=== PATIENT | female | born 1980 | race Caucasian/White ===

== ENCOUNTER → 2016-05-13 | Outpatient (REF) | payer OTHER ==
[2016-05-13 17:48] LABS: MEAN CORPUSCULAR HEMOGLOBIN 31.6 pg (27.0-33.0); MEAN CORPUSCULAR HGB CONC 33.2 g/dl (32.0-36.5); MEAN CORPUSCULAR VOLUME 95.2 fl (80.0-96.0); RED CELL DISTRIBUTION WIDTH 12.3 % (11.5-14.5); WHITE BLOOD COUNT 9.1 K/mm3 (4.0-10.0)
[2016-05-13 18:00] LABS: ALBUMIN 3.6 GM/DL (3.2-5.2); ALBUMIN/GLOBULIN RATIO 1.13 (1.00-1.93); ALKALINE PHOSPHATASE 40 U/L (45-117); ALT/SGPT 11 U/L (12-78); ANION GAP 6 MEQ/L (8-16); AST/SGOT 9 U/L (15-37); BILIRUBIN,TOTAL 0.1 MG/DL (0.2-1.0); BLOOD UREA NITROGEN 11 MG/DL (7-18); CALCIUM LEVEL 8.4 MG/DL (8.5-10.1); CARBON DIOXIDE LEVEL 29 MEQ/L (21-32); CHLORIDE LEVEL 108 MEQ/L (98-107); CREATININE FOR GFR 0.69 MG/DL (0.55-1.02); GLOMERULAR FILTRATION RATE > 60.0 (>60); GLUCOSE, FASTING 75 MG/DL (70-105); POTASSIUM SERUM 4.1 MEQ/L (3.5-5.1); SODIUM LEVEL 143 MEQ/L (136-145); TOTAL PROTEIN 6.8 GM/DL (6.4-8.2)
== END ==
LOC: M SFHCPLAZ 15:57
PROVIDERS: ATTEND Nurse Practitioner Adult Health
DX: Z00.00 Encounter for general adult medical examination without abnormal findings (principal); J02.9 Acute pharyngitis, unspecified

== ENCOUNTER → 2017-08-21 | Outpatient (REF) | payer OTHER ==
[2017-08-23 14:10] LABS: HPV HYBRID CAPTURE II Negative (Negative)
== END ==
LOC: M LAB REF 14:37
DX: Z01.419 Encounter for gynecological examination (general) (routine) without abnormal findings (principal); Z11.51 Encounter for screening for human papillomavirus (HPV)

== ENCOUNTER → 2017-10-02 | Outpatient (REF) | payer OTHER | LOC: M SFHCLERA 14:43 | DX: L57.0 Actinic keratosis (principal) ==

== ENCOUNTER → 2018-02-04 | Outpatient (CLI) | payer OTHER ==
[2018-02-04 20:06] LABS: BASO % 0.2 % (0.0-1.0); EOS # 0.1 10^3/uL (0.0-0.50); HEMATOCRIT 32.3 % (36.0-47.0); HEMOGLOBIN 10.8 g/dl (12.0-15.5); IMMATURE GRANULOCYTE % 0.3 % (0-3.0); LYMPH # 2.7 10^3/uL (1.5-4.5); LYMPH % 28.7 % (24.0-44.0); MEAN CORPUSCULAR HEMOGLOBIN 31.2 pg (27.0-33.0); MEAN CORPUSCULAR HGB CONC 33.4 g/dl (32.0-36.5); MEAN CORPUSCULAR VOLUME 93.4 fl (80.0-96.0); MONO # 0.6 10^3/uL (0.0-0.8); NEUTROPHILS % 63.8 % (36.0-66.0); PLATELET COUNT, AUTOMATED 203 10^3/uL (150-450); RED BLOOD COUNT 3.46 10^6/uL (4.00-5.40); RED CELL DISTRIBUTION WIDTH 12.1 % (11.5-14.5); WHITE BLOOD COUNT 9.4 10^3/uL (4.0-10.0)
[2018-02-04 20:44] LABS: CHLAMYDIA DNA AMPLIFICATION NEGATIVE (NEGATIVE); GC DNA AMPLIFICATION NEGATIVE (NEGATIVE)
[2018-02-04 22:52] LABS: HIV 1&2 SCREEN CENTAUR NEGATIVE (NEGATIVE); RUBELLA IgG QUALITATIVE IMMUNE (IMMUNE)
[2018-02-06 10:17] LABS: HBsAg Prenatal NEGATIVE (NEGATIVE)
[2018-02-06 10:17] LABS: HEPATITIS C VIRUS ABY INDEX 0.1 INDEX (<0.8)
== END ==
LOC: M SMT 15:41
DX: Z34.81 Encounter for supervision of other normal pregnancy, first trimester (principal); Z3A.09 9 weeks gestation of pregnancy
CPT/HCPCS: 86762

== ENCOUNTER → 2018-04-09 | Outpatient (CLI) | payer OTHER | LOC: M SMT 15:00 | PROVIDERS: ATTEND Obstetrics & Gynecology | DX: Z13.79 Encounter for other screening for genetic and chromosomal anomalies (principal) ==

== ENCOUNTER → 2018-04-13 | Outpatient (CLI) | payer OTHER ==
--- NOTE | 2018-04-13 20:26 | REP ---
Clinical: Anatomical follow-up for cord plexus cyst . Comparison: None available . Findings: Examination demonstrates a single live intrauterine in and show breech presentation. motion is identified by technologist. Placenta is noted posterior and grade grade 1 without evidence for placenta previa or abruption. Amniotic fluid volume is normal. Cervix measures 3.5 cm in length and appears closed. Nuchal cord cannot be excluded Gestational age by LMP 21 weeks 2 days with MARGARITO 08/22/2018 . Gestational age by current measurements 22 weeks 6 days with MARGARITO 08/11/2018 . FHR equals 147 beats per minute. BPD 5.6 cm 23 weeks 1 day HC 21.0 cm 23 weeks 0 days AC 17.9 cm 22 weeks 5 days FL 3.8 cm 22 weeks 2 days HL 3.8 cm 23 weeks 1 day HC/AC ratio 1.17 Estimated weight 518 grams ( 92nd percentile based on age by LMP ). Anatomical assessment demonstrates normal structures including cranium, choroid plexus, cavum, cerebellum/posterior fossa, facial features, lungs, four-chamber heart/ left ventricular outflow tracts, diaphragm, three-vessel cord, kidneys/bladder, and lower extremities. Limited evaluation of the right cardiac ventricular outflow tract, stomach, cord insertion, and upper extremities noted. No choroid plexus cysts identified on current examination. Impression: Single live intrauterine in breech presentation. Nuchal cord cannot be excluded. Anatomical limitations as noted above. Electronically Signed by Jaya Meier MD 04/13/2018 08:17 P
== END ==
LOC: M RAD 12:36
PROVIDERS: ATTEND Advanced Practice Midwife
DX: O35.0XX0 Maternal care for (suspected) central nervous system malformation in fetus, not applicable or unspecified (principal); O32.1XX0 Maternal care for breech presentation, not applicable or unspecified; Z3A.22 22 weeks gestation of pregnancy

== ENCOUNTER → 2018-04-23 | Outpatient (CLI) | payer OTHER | LOC: M SMT 10:40 | PROVIDERS: ATTEND Obstetrics & Gynecology | DX: O09.512 Supervision of elderly primigravida, second trimester (principal) ==

== ENCOUNTER → 2018-05-25 | Outpatient (CLI) | payer OTHER ==
[2018-05-25 12:24] LABS: BASO % 0.2 % (0.0-1.0); EOS % 0.3 % (0.0-3.0); HEMATOCRIT 31.6 % (36.0-47.0); HEMOGLOBIN 10.3 g/dl (12.0-15.5); LYMPH % 15.1 % (24.0-44.0); MEAN CORPUSCULAR HEMOGLOBIN 31.2 pg (27.0-33.0); MEAN CORPUSCULAR HGB CONC 32.6 g/dl (32.0-36.5); MEAN CORPUSCULAR VOLUME 95.8 fl (80.0-96.0); MONO # 0.7 10^3/uL (0.0-0.8); NEUTROPHILS # 10.3 10^3/uL (1.8-7.7); NEUTROPHILS % 78.6 % (36.0-66.0); PLATELET COUNT, AUTOMATED 216 10^3/uL (150-450); WHITE BLOOD COUNT 13.1 10^3/uL (4.0-10.0)
== END ==
LOC: M SMT 09:53
PROVIDERS: ATTEND Specialist
DX: O09.512 Supervision of elderly primigravida, second trimester (principal)

== ENCOUNTER → 2018-06-02 | Outpatient (CLI) | payer OTHER ==
--- NOTE | 2018-06-02 09:48 | REP ---
Right lower extremity deep vein duplex ultrasound: The deep veins demonstrate normal compression, normal Doppler color flow and normal Doppler waveforms with respiration and augmentation from the popliteal vein to the common femoral vein. Impression: There is no right lower extremity deep vein thrombus. Electronically Signed by Jose Rafael Calix MD 06/02/2018 09:40 A
== END ==
LOC: M RAD 09:12
PROVIDERS: ATTEND Obstetrics & Gynecology
DX: R22.41 Localized swelling, mass and lump, right lower limb (principal)

== ENCOUNTER 2018-07-25 09:36 | Inpatient (IN) | payer OTHER ==
[2018-07-25] VITALS (18 sets, daily range): BP systolic 112–133; BP diastolic 55–80
[~2018-07-25] VITALS: Ht 172.7 cm; Wt 73.8 kg
[2018-07-25] MEDS ORDERED: PRENTAB9 PO (09:55)
[2018-07-25] MEDS ORDERED: PENICILLIN G POTASSIUM IV 5 MU in D5W MINI-BAG PLUS 100 ML IV STA (10:35)
[2018-07-25] MEDS ORDERED: OXYTOCIN DRIP 30 UNITS in APPROPRIATE DILUENT 1 EA IV SCH (11:00)
--- NOTE | 2018-07-25 11:01 | HPE ---
DATE OF ADMISSION: 07/25/2018 HISTORY OF PRESENT ILLNESS: 38-year-old, (G) 1, para (P) 0 female at 36 and 0/7 weeks gestation by last menstrual period (LMP) consistent with 9 week ultrasound and expected date of confinement (EDC) of 08/22/2018 who presents with spontaneous loss of fluid per vagina at 1:15 a.m. on the morning of admission. She continued to leak intermittently throughout the rest of the morning. She denies contractions. She had a scant amount of vaginal bleeding with wiping. COURSE: The patient initiated care at 8 weeks gestation on 01/16/2018. Her first trimester blood pressure was 122/74, weight 136 pounds. course was unremarkable. MEDICAL HISTORY: Noncontributory. SURGICAL HISTORY: None. ALLERGIES: LATEX. SOCIAL HISTORY: The patient lives in [place]. She denies cigarettes, alcohol or drug use. Father of the baby is in involved. FAMILY HISTORY: Noncontributory. PHYSICAL EXAMINATION: Blood pressure is 132/80. Pulse is 84. Afebrile. She is in no apparent distress. Head and Neck Exam: Normal. Lungs: Clear. Heart: Regular rate and rhythm. Abdomen: Nontender. Gravid. heart tones Category 1. Contractions irregular. Sterile Vaginal Exam: Positive pool, positive Nitrazine, positive fern. Cervix is 3 cm, 80%, -2, posterior, vertex. Extremities: Nontender. LABS: Blood type AB positive. Rubella immune. RPR nonreactive. Hepatitis B and C negative. HIV negative. ASSESSMENT: 38-year-old, G1, P0, female at 36 and 0/7 weeks gestation who presents with spontaneous rupture of membranes not in labor. PLAN: To admit on 07/25/2018. Will recommend Pitocin augmentation of labor. Will also treat for GBS prophylaxis with penicillin for GBS unknown.
[2018-07-25] MEDS: LR 1,000 ML IV SCH ×2 (11:13→15:06)
[2018-07-25 11:39] LABS: HEMATOCRIT 30.8 % (36.0-47.0); HEMOGLOBIN 10.4 g/dl (12.0-15.5); MEAN CORPUSCULAR HEMOGLOBIN 31.2 pg (27.0-33.0); MEAN CORPUSCULAR HGB CONC 33.8 g/dl (32.0-36.5); MEAN CORPUSCULAR VOLUME 92.5 fl (80.0-96.0); PLATELET COUNT, AUTOMATED 210 10^3/uL (150-450); RED BLOOD COUNT 3.33 10^6/uL (4.00-5.40)
[2018-07-25] MEDS ORDERED: FENTANYL 2MCG/ML ROPIVACAINE 0.2% IN 0.9% NACL 100ML IVBAG As Ordered ONE (13:32)
[2018-07-25] MEDS ORDERED: EPIDURAL COMMENT XX SCH (14:45)
[2018-07-25] MEDS ORDERED: REFRIGERATOR IV KEYS XX PRN (14:45)
[2018-07-25] MEDS ORDERED: ONDANSETRON 4MG/2ML VIAL (J2405) IV PRN ×2 (14:45→19:30)
[2018-07-25] MEDS ORDERED: FENTANYL/ROPIVACAINE/NACL BAG 100 ML EPIDURAL SCH (14:45)
[2018-07-25] MEDS ORDERED: ePHEDrine SULFATE 25 MG/5 ML(5MG/ML) SYRINGE IV PRN (14:45)
[2018-07-25] MEDS ORDERED: NALOXONE INJ 0.4 MG/1 ML VIAL (J2310) IV PRN (14:45)
[2018-07-25] MEDS ORDERED: EPIDURAL/PCA KEYS XX PRN (14:45)
[2018-07-25] MEDS ORDERED: diphenhydrAMINE INJ 50MG/ML VIAL (J1200) IV PRN (14:45)
[2018-07-25] MEDS ORDERED: LACTATED RINGER'S 1000 ML IV PRN (14:45)
[2018-07-25] MEDS ORDERED: PENICILLIN G POTASSIUM IV 2.5 MU in APPROPRIATE DILUENT 1 EA IV SCH (15:15)
[2018-07-25] MEDS ORDERED: RHOGAM 300 MCG (1500 IU) INJ (J2790) IM SCH (19:30)
[2018-07-25] MEDS ORDERED: METHYLERGONOVINE MALEATE 0.2 MG TAB PO PRN (19:30)
[2018-07-25] MEDS ORDERED: ACETAMINOPHEN TAB 650MG DOSE (2X325MG) PO PRN (19:30)
[2018-07-25] MEDS ORDERED: DOCUSATE SODIUM 100 MG CAP PO PRN (19:30)
[2018-07-25] MEDS ORDERED: IBUPROFEN 800 MG TAB PO PRN (19:30)
[2018-07-25] MEDS ORDERED: MEASLES,MUMPS,RUBELLA VACCINE INJ (MMR-II) (90707) SC SCH (19:30)
[2018-07-25] MEDS ORDERED: DIBUCAINE 1% OINTMENT 30GM TOP PRN (19:30)
[2018-07-25] MEDS ORDERED: IBUPROFEN 600 MG TAB PO PRN (19:30)
[2018-07-25] MEDS ORDERED: OXYTOCIN DRIP 30 UNITS in APPROPRIATE DILUENT 1 EA IV ONE (19:30)
[2018-07-25] MEDS ORDERED: LIDOCAINE 1% MDV 20ML VIAL INFIL ONE (19:30)
[2018-07-26 05:55] VITALS: BP 115/56
[2018-07-26] MEDS: PRENATAL VITAMINS CHEWABLE TABLET PO SCH (08:35)
[2018-07-26] MEDS: ACETAMINOPHEN 500 MG TAB PO PRN ×2 (09:46→20:55)
[2018-07-26 18:22] VITALS: BP 118/65
--- NOTE | 2018-07-26 21:26 | DN ---
DATE: 07/25/2018 PREDELIVERY DIAGNOSIS: A 36-0/7 weeks' gestation, labor induction. POSTDELIVERY DIAGNOSIS: Delivered. PROCEDURE: Spontaneous vaginal delivery. FLASK MAKER: Dr. Jabier Goldstein. ANESTHESIA: Epidural. ESTIMATED BLOOD LOSS: 300 mL. FINDINGS: A 6 pound 9 ounce female with scores 8 and 9. Nuchal cord times two. DELIVERY SUMMARY: After 90 minutes second stage, the patient spontaneous delivered a 6 pound 9 ounce female with scores 8 and 9 under epidural anesthesia. Nuchal cord times two is reduced manually. The shoulders delivered with ease. The infant was handed to the mother. The cord was doubly clamped and cut. Placenta did not delivery for approximately 30 minutes and partially . The patient was bleeding still. I expedited delivery with manual extraction. Placenta came out in multiple fragments. The uterine cavity was deemed to be empty at the end of the procedure. Also of note, the patient appeared to have a slight bicornuate uterus manual exam. The patient received intravenous (IV) pitocin immediately after delivery of the placenta. A first degree left labial laceration and first degree perineal laceration repaired with 3-0 Chromic suture in the usual fashion. Sponge and needle counts were correct.
[2018-07-27 06:00] VITALS: BP 101/56
[2018-07-27] MEDS: PRENATAL VITAMINS CHEWABLE TABLET PO SCH (08:23)
[2018-07-27] MEDS ORDERED: IBUP-1114 PO (08:58)
[2018-07-27] MEDS ORDERED: MAPA500T2 PO (08:58)
== END 2018-07-27 11:00 | disposition home or self-care (01) | DRG 805 ==
LOC: M LDO 09:36 → M LDI 10:16 → M OBS 21:14
PROVIDERS: ADMIT Specialist; ATTEND Specialist
PROC: 10E0XZZ Delivery of Products of Conception, External Approach (ICD-10-PCS; principal; 2018-07-25)
PROC: 0HQ9XZZ Repair Perineum Skin, External Approach (ICD-10-PCS; 2018-07-25)
DX: O69.82X0 Labor and delivery complicated by other cord entanglement, without compression, not applicable or unspecified (principal); O60.14X0 Preterm labor third trimester with preterm delivery third trimester, not applicable or unspecified; Z37.0 Single live birth; O09.523 Supervision of elderly multigravida, third trimester; Z3A.36 36 weeks gestation of pregnancy; O70.0 First degree perineal laceration during delivery

== ENCOUNTER → 2018-12-08 | Outpatient (REF) | payer OTHER ==
[~2018-12-08] MED LIST: IBUP-1114 PO; MAPA500T2 PO; PRENTAB9 PO
== END ==
LOC: M SFHCPLAZ 17:08
PROVIDERS: ATTEND Dermatology
DX: D22.5 Melanocytic nevi of trunk (principal)

== ENCOUNTER → 2018-12-27 | Outpatient (REF) | payer OTHER | LOC: M LAB REF 09:30 | PROVIDERS: ATTEND Nurse Practitioner Family | DX: J02.9 Acute pharyngitis, unspecified (principal) ==

== ENCOUNTER → 2019-12-03 | Outpatient (CLI) | payer OTHER ==
[2019-12-03 17:43] LABS: BASO % 0.3 % (0.0-1.0); EOS # 0.1 10^3/uL (0.0-0.5); EOS % 0.7 % (0.0-3.0); HEMATOCRIT 37.1 % (36.0-47.0); HEMOGLOBIN 12.4 g/dl (12.0-15.5); LYMPH # 3.3 10^3/uL (1.5-5.0); LYMPH % 29.7 % (24.0-44.0); MEAN CORPUSCULAR HEMOGLOBIN 30.7 pg (27.0-33.0); MEAN CORPUSCULAR HGB CONC 33.4 g/dl (32.0-36.5); MEAN CORPUSCULAR VOLUME 91.8 fl (80.0-96.0); MONO # 0.6 10^3/uL (0.0-0.8); MONO % 5.4 % (0.0-5.0); NEUTROPHILS % 63.5 % (36.0-66.0); PLATELET COUNT, AUTOMATED 233 10^3/uL (150-450); RED BLOOD COUNT 4.04 10^6/uL (4.00-5.40)
[2019-12-03 20:56] LABS: CHLAMYDIA DNA AMPLIFICATION NEGATIVE (NEGATIVE); GC DNA AMPLIFICATION NEGATIVE (NEGATIVE)
[2019-12-03 21:04] LABS: HEPATITIS C VIRUS ABY INDEX 0.2 INDEX (<0.8); HIV 1&2 SCREEN CENTAUR NEGATIVE (NEGATIVE)
== END ==
LOC: M PLALAB 15:06
PROVIDERS: ATTEND Advanced Practice Midwife
DX: O09.521 Supervision of elderly multigravida, first trimester (principal)

== ENCOUNTER → 2020-02-09 | Outpatient (CLI) | payer OTHER ==
--- NOTE | 2020-02-09 15:36 | REP ---
INDICATION: ANATOMY COMPARISON: None. TECHNIQUE: Transabdominal obstetrical ultrasound with color Doppler evaluation. FINDINGS: Examination demonstrates a single live intrauterine in cephalic presentation. motion is identified by technologist. Placenta is noted anterior and grade 0 without evidence for placenta previa or abruption. Amniotic fluid volume is normal. Cervix measures 4.7 cm in length and appears closed.. Gestational age by LMP 19 weeks 6 days with MARGARITO 06/29/2020. Gestational age by current measurements 19 weeks 6 days with MARGARITO 06/29/2020. FHR equals 155 beats per minute. BPD: 4.6 cm it is 19 weeks 6 days HC: 17.3 cm 19 weeks 6 days AC: 14.4 cm 19 weeks 5 days FL: 3.2 cm 19 weeks 6 days HL: 3.1 cm 20 weeks 1 day HC/AC: 1.20 Estimated weight 313 grams (40thpercentile). Anatomical assessment demonstrates normal structures including cranium, choroid plexus, cavum, cerebellum/posterior fossa, lungs, four-chamber heart/ventricular outflow tracts, diaphragm, stomach, cord insertion/three-vessel cord, kidneys/bladder, spine, and extremities. IMPRESSION: Single live intrauterine in cephalic presentation demonstrating appropriate interval growth. Limited evaluation of the facial features noted. Remainder of the anatomical assessment is complete and normal. <Electronically signed by Jaya Meier > 02/09/20 [id number]
== END ==
LOC: M WHC 08:01
PROVIDERS: ATTEND Advanced Practice Midwife
DX: O09.522 Supervision of elderly multigravida, second trimester (principal); Z3A.19 19 weeks gestation of pregnancy

== ENCOUNTER → 2020-03-03 | Outpatient (CLI) | payer OTHER ==
--- NOTE | 2020-03-03 17:39 | REP ---
INDICATION: F/U ANATOMY. COMPARISON: 02/09/2020. TECHNIQUE: Real-time sonographic evaluation of the gravid uterus performed. FINDINGS: Estimated gestational age is23 weeks 1 day, EDC 06/29/2020. Today's measurements indicate appropriate growth. Presentation: Transverse head maternal right side. Placenta anterior, grade 0, without evidence of placenta previa. heart rate is recorded at 161 beats per minute. Amniotic fluid is subjectively normal. Closed cervical length is measured at 5.0 cm. Biometry chart: BPD: 56 mm, 23 weeks 0 days, 46th percentile. HC: 210 mm, 23 weeks 1 days, 47 percentile AC: 181 mm, 23 weeks 0 days, 45th percentile Femur length: 43 mm, 23 weeks 6 days, 68th percentile HC to AC ratio: 1.16, normal range 1.03-1.22. Estimated weight: 584g, 50th percentile. The facial structures are seen and are grossly unremarkable. IMPRESSION: Viable single intrauterine gestation as above. <Electronically signed by Jose Rafael Casas > 03/03/20 [id number]
== END ==
LOC: M WHC 15:27
PROVIDERS: ATTEND Advanced Practice Midwife
DX: Z36.89 Encounter for other specified antenatal screening (principal); Z3A.23 23 weeks gestation of pregnancy

== ENCOUNTER → 2020-03-23 | Outpatient (REF) | payer OTHER ==
[2020-03-23 13:08] LABS: HEMATOCRIT 33.7 % (36.0-47.0); HEMOGLOBIN 10.8 g/dl (12.0-15.5); MEAN CORPUSCULAR HEMOGLOBIN 30.3 pg (27.0-33.0); MEAN CORPUSCULAR VOLUME 94.7 fl (80.0-96.0); PLATELET COUNT, AUTOMATED 204 10^3/uL (150-450); RED BLOOD COUNT 3.56 10^6/uL (4.00-5.40); WHITE BLOOD COUNT 11.1 10^3/uL (4.0-10.0)
== END ==
LOC: M PLALAB 08:42
PROVIDERS: ATTEND Advanced Practice Midwife
DX: Z34.82 Encounter for supervision of other normal pregnancy, second trimester (principal); Z3A.26 26 weeks gestation of pregnancy

== ENCOUNTER → 2020-04-03 | Outpatient (CLI) | payer OTHER | LOC: M LAB 07:56 | PROVIDERS: ATTEND Advanced Practice Midwife | DX: O99.810 Abnormal glucose complicating pregnancy (principal); Z3A.00 Weeks of gestation of pregnancy not specified ==

== ENCOUNTER → 2020-05-31 | Outpatient (REF) | payer OTHER | LOC: M PLALAB 13:14 | PROVIDERS: ATTEND Obstetrics & Gynecology | DX: Z36.89 Encounter for other specified antenatal screening (principal); Z3A.35 35 weeks gestation of pregnancy ==

== ENCOUNTER 2020-06-05 00:58 | Inpatient (IN) | payer OTHER ==
[~2020-06-05] VITALS: Ht 172.7 cm; Wt 74.8 kg
[2020-06-05] VITALS (8 sets, daily range): BP systolic 107–124; BP diastolic 66–78
[2020-06-05] MEDS ORDERED: BICITRA 30ML SOLN UDC PO ONE (02:20)
[2020-06-05] MEDS ORDERED: LR 1,000 ML IV SCH ×2 (02:20→05:05)
[2020-06-05] MEDS ORDERED: AZITHROMYCIN INJ 500 MG, VIAL MATE ADAPTER 1 EACH in NS 250 ML IV ONE (02:20)
[2020-06-05] MEDS ORDERED: ceFAZolin SOD 2 GM in IV 1 EA IV ONE (02:20)
[2020-06-05] MEDS ORDERED: LACTATED RINGER'S 1000 ML IV STA (02:20)
[2020-06-05] MEDS ORDERED: dexameTHASONE 4 MG/ML 1ML VIAL (J1100 PER 1MG) As Ordered ONE (02:23)
[2020-06-05] MEDS ORDERED: ONDANSETRON 4MG/2ML VIAL As Ordered ONE (02:23)
[2020-06-05] MEDS ORDERED: KETOROLAC 60MG 2ML VIAL As Ordered ONE (02:23)
[2020-06-05] MEDS ORDERED: MORPHINE PRES-FREE INJ 10 MG/10 ML VIAL (J2274) As Ordered ONE (02:23)
[2020-06-05] MEDS ORDERED: OXYTOCIN INJ 10 UNITS/ML VIAL (J2590) As Ordered ONE (02:23)
[2020-06-05] MEDS ORDERED: OXYTOCIN 30 UNITS IN 0.9% NaCl 500ML IV BAG (J2590) As Ordered ONE (02:24)
[2020-06-05 02:48] LABS: HEMATOCRIT 32.6 % (36.0-47.0); HEMOGLOBIN 10.8 g/dl (12.0-15.5); MEAN CORPUSCULAR HEMOGLOBIN 30.9 pg (27.0-33.0); MEAN CORPUSCULAR HGB CONC 33.1 g/dl (32.0-36.5); MEAN CORPUSCULAR VOLUME 93.1 fl (80.0-96.0); PLATELET COUNT, AUTOMATED 152 10^3/uL (150-450); WHITE BLOOD COUNT 16.4 10^3/uL (4.0-10.0)
--- NOTE | 2020-06-05 02:57 | HPEPDOC ---
Obstetrical History & Physical General Date of Admission Jun 05, 2020 at 02:12 History of Present Illness Brianne is a 40yo with SIUP at 36w1d by lmp presents tonight with gush of fluid around 2330 with continued leakage, soaking into pad as she walks around. She notes the "exact same thing" happened with her last at 36wk. She had breech presentation noted in the office on 05/31 with plan for PLTCS if she had persistent breech presentation. Good movement, no vaginal bleeding or painful ctx. No fevers/chills. Fluid is clear. Chief Complaint: LOF, pre-term, Group B Positive Information Provided By: Patient Care Care: Good Care Dating Final EDC: Jun 29, 2020 Final EDC by: LMP Antepartum Course Diagnos(ajith)boogie MUNIZ (age 40) with NIPT showing low-risk female, history of prior PTD at 36wk after PPROM, bicornuate uterus, breech Past Medical History Past Obstetrical History : Past Obstetrical History: Multigravida (07/25/2018 PPROM 36wk 6lb9oz F ) Type of Delivery: Spontaneous Vaginal Del. 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 (bicornuate uterus) Past Medical History Medical History benign Surgical History: Other (left ACL reconstruction) Family History Significant Family History: Other (mother of melanoma) Social History Marital Status: Family situation: Spouse/partner home Psychosocial History: No pertinent psych hx * Smoker: non-smoker Alcohol: Denies Drugs: denies Imunizations Tdap status: current Allergies Coded Allergies: latex (Verified Allergy, Unknown, SKIN RASH, 07/25/18) Medications Scheduled No.137/Iron/Folic Acd ( Vitamin Tablet) 1 Each Tablet, 1 TAB PO DAILY Scheduled PRN Acetaminophen (Mapap) 500 Mg Tablet, 1,000 MG PO Q6HP PRN for PAIN SCALE 6-10 Ibuprofen (Ibuprofen) 400 Mg Tablet, 800 MG PO Q8HP PRN for PAIN SCALE 6-10 Physical Examination Physical Examination GENERAL: Alert and oriented times three. ABDOMEN: Gravid and non-tender to touch. FETUS: Is breech by TAUS, head maternal RUQ EXTREMITIES: No edema BLE Grossly ruptured with clear fluid saturating towel that is nitrazine positive Vital Signs/I&O Vital Signs Date Time Temp Pulse Resp B/P (MAP) Pulse Ox O2 Delivery O2 Flow Rate FiO2 06/05/20 01:12 97.6 72 119/78 (92) Pertinent Laboratoy Data Blood Type: AB+ RBC Antibody Screen: Negative HIV: Negative Hepatitis B: Negative Hepatitis C: Negative Rapid Plasma Reagin: Nonreactive Rubella: Immune Chlamydia/Gonorrhea: Negative Group B Streptococcus: Positive Glucose Tolerance Test: 138 (74/140/TNP/103) Steroid Therapy Steroid Therapy: No Assessment Heart Rate (FHR): 130 Variability: Moderate Accelerations: Positive Decelerations: None Tocometer Contractions: No Assessment/Plan Assessment Brianne is a 40yo with SIUP at 36w1d by lmp admitted for PPROM, clear, at 2330 with plan for PLTCS. Vitals wnl, benign exam other than grossly ruptured with +nitrazine and breech on TAUS. Cat I FHRT. PMhx/PNC significant for: AMA (age 40), history of prior PTD at 36wk after PPROM, bicornuate uterus, breech Plan Admit and orient. Counseled and consented for PLTCS for persistent breech presentation in the setting of PPROM. Also BTL for satisfied parity. Patient and state 100% sure that they desire no other children. had intention for vasectomy already. Also consented for blood transfusion. Discussed r/b/a and signed consent forms. Nursing team and anesthesia aware of plan. Diet: NPO Group B Streptococcus (GBS) positive: will treat with IV anceph and azithromycin Labs and intravenous (IV) per unit protocol. Lactated Ringers (LR): Bolus 1000 mL, then at 125 mL/hr. Rachel Littlejohn MD Jun 05, 2020 02:36
[2020-06-05] MEDS ORDERED: diphenhydrAMINE 50MG/ML VIAL (J1200) IV PRN (03:08)
[2020-06-05] MEDS ORDERED: NALOXONE INJ 0.4MG/1ML VIAL (J2310 PER 1MG) IV PRN ×2 (03:08)
[2020-06-05] MEDS ORDERED: NALBUPHINE HCL 10 MG/ML AMP (J2300) IV PRN (03:08)
[2020-06-05] MEDS ORDERED: METOCLOPRAMIDE INJ 10MG/2ML VIAL (J2765 PER 1) IV PRN ×2 (03:08→05:05)
[2020-06-05] MEDS ORDERED: ONDANSETRON 4MG/2ML VIAL IV PRN ×3 (03:08→05:05)
[2020-06-05] MEDS ORDERED: ATROPINE SULF 0.4 MG/ML 1ML VIAL (J0461) As Ordered ONE (03:23)
[2020-06-05] MEDS ORDERED: OXYTOCIN DRIP 30 UNITS in IV 1 EA IV SCH (04:51)
[2020-06-05] MEDS ORDERED: SIMETHICONE 80MG CHEW TAB PO PRN (04:55)
[2020-06-05] MEDS ORDERED: PERCOCET 5MG/325MG TAB PO PRN ×2 (04:55→05:05)
[2020-06-05] MEDS ORDERED: RHOGAM 300 MCG (1500 IU) INJ (J2790) IM SCH (04:55)
[2020-06-05] MEDS ORDERED: MEASLES,MUMPS,RUBELLA VACCINE INJ (MMR-II) (90707) SC SCH (04:55)
[2020-06-05] MEDS ORDERED: fentaNYL 100 MCG/2 ML INJECTION (J3010) IV PRN (05:05)
--- NOTE | 2020-06-05 07:57 | RO ---
OPERATIVE NOTE DATE OF OPERATION: 06/05/2020 SURGEON: Rachel Littlejohn MD EXECUTIVE PRODUCER PROMOS: Souleymane Alcala MD INDICATION FOR OPERATION: Brianne is a 40-year-old G2, now P0,2,0,2 who presented at 36 weeks 4 days with PPROM having gross rupture of membranes with Nitrazine positive and known breech presentation noted in clinic and on repeat ultrasound for presentation was still found to have breech presentation. Upon conversation she had 100% satisfied parity with desire for permanent sterilization and so she elected for bilateral tubal ligation at the time of section. PREOPERATIVE DIAGNOSES: 1. Yañez intrauterine at 36 weeks 4 days. 2. PPROM. 3. Breech presentation. 4. Satisfied parity. POSTOPERATIVE DIAGNOSES: 1. Yañez intrauterine at 36 weeks 4 days. 2. PPROM. 3. Breech presentation. 4. Satisfied parity. 5. Status post uncomplicated section and bilateral tubal ligation. MATERIAL FORWARDED TO THE LAB FOR EXAMINATION: Portions of bilateral fallopian tubes. DESCRIPTION OF FINDINGS: Female in mahendra breech presentation, Apgars 7 and 9. Weight 6 pounds 0 ounces. Normal appearing uterus (prior known bicornuate), fallopian tubes and ovaries normal in appearance. INFECTION CLASSIFICATION: 2. ESTIMATED BLOOD LOSS: 500 mL. URINE OUTPUT: 150 mL of clear yellow urine. IV FLUIDS: 1800 mL of lactated Ringer's. OPERATION PERFORMED: 1. Primary low transverse section. 2. Bilateral tubal ligation. DESCRIPTION OF PROCEDURE: The patient was taken to the operating room. She had a category 1 heart rate tracing prior. Spinal anesthesia was administered; Diaz catheter and bilateral sequential compression devices were placed. She was prepped and draped in normal sterile fashion in dorsal supine position with left lateral tilt. Time out was performed to confirm patient name, date of , procedure and indication, the team was in agreement. Spinal anesthesia was found to be adequate using an Allis clamp. She received 2 gm IV Ancef as well as 500 mg of IV Azithromycin prior to beginning the procedure. Pfannenstiel skin incision was made with scalpel and carried through to the underlying layer of fascia. Fascia was incised in the midline and the incision was extended laterally with Sandoval scissors. Superior and inferior aspects of the fascial incision were grasped with Kavitha clamps, elevated and underlying rectus muscles were dissected off bluntly and sharply. Peritoneum was entered digitally and rectus muscles were in the midline. Peritoneal incision was extended superiorly and inferiorly with good visualization of the bladder. Mobius retractor was inserted and vesicouterine peritoneum was identified, grasped with pickups and entered sharply with Metzenbaum scissors. Incision was extended laterally and bladder flap created digitally. Lower uterine segment was then scored in transverse fashion with scalpel. The uterus was entered bluntly and the incision was extended with traction with clear amniotic fluid noted. Infant's buttocks were elevated to the level of the incision with fundal pressure. The legs were delivered with Pinard maneuver and the baby was delivered up to the level of the shoulders at which point the arms were delivered using Loveset's maneuver and the head was delivered by gently rocking back and forth. There was spontaneous cry. Nose and mouth were suctioned with bulb suction, cord was clamped x2 and cut. was handed off to the awaiting nursing team. Placenta was removed with uterine massage and traction on the cord. The uterus was left in situ and cleared of all clot and debris. Uterine incision was repaired with #0 Vicryl suture in running locking fashion and second layer of #0 Monocryl was used to close the hysterotomy incision in imbricating fashion. Uterine incision was inspected, hemostasis was noted. At this time the right and left fallopian tubes were visualized without abnormalities. [place] tubal ligation was performed on the right followed by left fallopian tube using #0 plain gut suture. Notably the fimbriated ends of the fallopian tubes were removed entirely. Transected portions of the fallopian tubes were sent off to pathology. Gutters were cleared of all clots, the remaining tubal segments were inspected and there was no bleeding. Netta was applied along the hysterotomy incision and complete hemostasis was again noted. Mobius retractor was removed. The peritoneum was closed using 3-0 Vicryl suture in running fashion Rectus muscles were reapproximated with [id number] stitches using #0 Vicryl suture. The fascia was reapproximated with #0 Vicryl suture in running fashion, subcutaneous tissue was copiously irrigated. Yasmin's fascia was reapproximated using 3-0 Vicryl suture in running fashion, skin edges were reapproximated using three inverted stitches using 3-0 Vicryl suture followed by running subcuticular stitch using 4-0 Monocryl suture. Incision was cleaned using wet lap, dried with dry lap, Steri-Strips were applied in the usual fashion perpendicular to the Pfannenstiel incision, Optifoam dressing was placed overlying. The vagina was cleared of all blood clot without active bleeding noted. Fundus was firm at U-2 cm. All counts were correct x2. Procedure was without complications. The patient tolerated the procedure well, she was taken to the recovery room on labor and delivery in stable condition. LIVE
[2020-06-05] MEDS: LR 1,000 ML IV SCH ×2 (08:06→12:51)
[2020-06-05] MEDS: PRENATAL VITAMINS CHEWABLE TABLET PO SCH (09:00)
[2020-06-05] MEDS: DOCUSATE SODIUM 100MG CAPSULE PO SCH ×2 (09:47→20:19)
[2020-06-05] MEDS: KETOROLAC 30 MG/ML 1ML VIAL IV SCH ×3 (09:48→20:19)
[2020-06-06 02:19] VITALS: BP 130/60
[2020-06-06] MEDS: IBUPROFEN 800 MG TAB PO SCH ×3 (05:19→19:47)
[2020-06-06 05:57] LABS: HEMOGLOBIN 9.1 g/dl (12.0-15.5); MEAN CORPUSCULAR HEMOGLOBIN 30.4 pg (27.0-33.0); MEAN CORPUSCULAR HGB CONC 32.5 g/dl (32.0-36.5); MEAN CORPUSCULAR VOLUME 93.6 fl (80.0-96.0); PLATELET COUNT, AUTOMATED 130 10^3/uL (150-450); RED BLOOD COUNT 2.99 10^6/uL (4.00-5.40); WHITE BLOOD COUNT 12.3 10^3/uL (4.0-10.0)
[2020-06-06 06:09] VITALS: BP 106/58
[2020-06-06] MEDS: PRENATAL VITAMINS CHEWABLE TABLET PO SCH (09:05)
[2020-06-06] MEDS: DOCUSATE SODIUM 100MG CAPSULE PO SCH ×2 (09:05→19:47)
[2020-06-06] MEDS: PERCOCET 5MG/325MG TAB PO PRN ×2 (09:06→19:47)
--- NOTE | 2020-06-06 09:15 | IPNPDOC ---
Progress Note Date of Service: Jun 06, 2020 Day#: 1 Progress Note SUBJECT: Brianne is a 40yo with SIUP at 36w1d by lmp presents tonight with gush of fluid around 2330 with continued leakage, soaking into pad as she walks around. She had a primary section for breech presentation. She has been ambulating, voiding spontaneously without issue and tolerating regular diet. Jaylin ast feeding without issue. OBJECTIVE: VITAL SIGNS: Within normal limits, afebrile. Alert and oriented times three. Breath sounds clear to auscultation. Abdomen: Fundus firm at U. Dressing is intact without drainage. Minimal lochia. ASSESSMENT: Day 1 postoperative PLAN: 1. continue supportive nursing care. 2. Continue pain management. 3. Patient may shower today. 4. Anticipate discharge to home tomorrow. VS, I&O, 24H, Fishbone Vital Signs/I&O Vital Signs Date Time Temp Pulse Resp B/P (MAP) Pulse Ox O2 Delivery O2 Flow Rate FiO2 06/06/20 09:06 18 06/06/20 06:09 98.5 73 106/58 (74) 99 Room Air I&O- Last 24 Hours up to 6 AM 06/06/20 06:00 Intake Total 4450 ml Output Total 1300 ml Balance 3150 ml Laboratory Data 24H LABS Laboratory Tests 2 06/06/20 05:34: Nucleated Red Blood Cells % (auto) 0.0 CBC/BMP Laboratory Tests 06/06/20 05:34 BECK NICOLAS CNM Jun 06, 2020 09:15
[2020-06-06 09:59] VITALS: BP 125/73
[2020-06-06 14:05] VITALS: BP 110/70
[2020-06-06 18:00] VITALS: BP 124/65
[2020-06-06 22:00] VITALS: BP 121/61
[2020-06-07 02:00] VITALS: BP 117/61
[2020-06-07] MEDS: IBUPROFEN 800 MG TAB PO SCH (04:32)
[2020-06-07] MEDS: PERCOCET 5MG/325MG TAB PO PRN ×2 (04:33→10:58)
[2020-06-07 05:56] VITALS: BP 109/59
[2020-06-07] MEDS ORDERED: PERCOCET PO (07:25)
[2020-06-07] MEDS ORDERED: IBUP80TA PO (07:25)
[2020-06-07] MEDS ORDERED: DOK1CAP7 PO (07:25)
[2020-06-07] MEDS: PRENATAL VITAMINS CHEWABLE TABLET PO SCH (07:40)
[2020-06-07] MEDS: DOCUSATE SODIUM 100MG CAPSULE PO SCH (07:40)
--- NOTE | 2020-06-07 09:15 | IPNPDOC ---
Progress Note Date of Service: Jun 07, 2020 Day#: 2 Progress Note POD 2 SUBJECT: Brianne is a 40yo [id number] s/p uncomplicated PLTCS at 36w1d after presenting with PPROM and mahendra breech presentation, doing well post- op/ day # 2. She has been ambulating, voiding spontaneously without issue and tolerating regular diet. Pain well controlled. Bottle feeding without issue. Reports lochia is like a normal period. No f/c/n/v/CP/SOB. OBJECTIVE: VITAL SIGNS: Within normal limits, afebrile. Alert and oriented times three. Abdomen: Fundus firm at U-2. Soft, appropriately tender to palpation without rebound/guarding. Pfannenstiel incision covered by dry/clean optifoam. Extremities: no pain with palpation of calves Labs: pre-op H/H: 10.8/32.6 post-op H/H: 9.1/28 ASSESSMENT: Brianne is a 40yo [id number] s/p uncomplicated PLTCS at 36w1d after presenting with PPROM and mahendra breech presentation, doing well post- op/ day # 2. Vitals within normal limits, afebrile, hemodynamically stable with no evidence of infection. PLAN: 1. Discharge to home today. 2. Motrin for pain with prn percocet. Colace for bowel regimen 3. Encourage ambulation and hydration 4. Has BTL for contraception 5. Incision check with Dr. Littlejohn in 2 weeks 6. Discussed return precautions at length. No heavy lifting, vaginal rest 6 weeks. 7. Remove optifoam and steri strips in 1 week, keep incision clean and dry Rachel Littlejohn MD VS, I&O, 24H, Fishbone Vital Signs/I&O Vital Signs Date Time Temp Pulse Resp B/P (MAP) Pulse Ox O2 Delivery O2 Flow Rate FiO2 06/07/20 05:56 98.1 62 18 109/59 (76) 96 Room Air I&O- Last 24 Hours up to 6 AM 06/07/20 06:00 Intake Total 720 ml Balance 720 ml Rachel Littlejohn MD Jun 07, 2020 07:47
--- NOTE | 2020-06-07 09:21 | DS.PDOC ---
Discharge Summary General Date of Admission Jun 05, 2020 at 02:12 Date of Discharge Jun 07, 2020 Attending Physician: Rachel Littlejohn MD Discharge Summary PROCEDURES PERFORMED DURING STAY: primary low transverse section with BTL ADMITTING DIAGNOSES: 1. breech presentation at 36+ weeks with PPROM 2. satisfied parity DISCHARGE DIAGNOSES: 1. breech presentation at 36+ weeks with PPROM, delivered 2. satisfied parity, s/p BTL COMPLICATIONS/CHIEF COMPLAINT: Labor/ C/S. HISTORY OF PRESENT ILLNESS/HOSPITAL COURSE: Brianne is a 40yo [id number] s/p uncomplicated PLTCS with BTL at 36w1d after presenting with PPROM and mahendra breech presentation, doing well post- op/ day # 2. She has had a benign post-op course and at time of discharge, vitals within normal limits, afebrile, hemodynamically stable with no evidence of infection. DISCHARGE MEDICATIONS: Please see below. ALLERGIES: Please see below. PHYSICAL EXAMINATION ON DISCHARGE: VITAL SIGNS: Within normal limits, afebrile. Alert and oriented times three. Abdomen: Fundus firm at U-2. Soft, appropriately tender to palpation without rebound/guarding. Pfannenstiel incision covered by dry/clean optifoam. Extremities: no pain with palpation of calves LABORATORY DATA: Please see below. pre-op H/H: 10.8/32.6 post-op H/H: 9.04/20 DIET: regular DISCHARGE PLAN/INSTRUCTIONS: 1. Discharge to home today. 2. Motrin for pain with prn percocet. Colace for bowel regimen 3. Encourage ambulation and hydration 4. Has BTL for contraception 5. Incision check with Dr. Littlejohn in 2 weeks 6. Discussed return precautions at length. No heavy lifting, vaginal rest 6 weeks. 7. Remove optifoam and steri strips in 1 week, keep incision clean and dry DISCHARGE CONDITION: Stable TIME SPENT ON DISCHARGE: Greater than 20 minutes. Vital Signs/I&Os Vital Signs Date Time Temp Pulse Resp B/P (MAP) Pulse Ox O2 Delivery O2 Flow Rate FiO2 06/07/20 05:56 98.1 62 18 109/59 (76) 96 Room Air I&O- Last 24 Hours up to 6 AM 06/07/20 06:00 Intake Total 720 ml Balance 720 ml Discharge Medications Scheduled Docusate Sodium (Dok) 100 Mg Capsule, 100 MG PO BID Ibuprofen (Ibuprofen) 800 Mg Tablet, 800 MG PO Q8H No.137/Iron/Folic Acd ( Vitamin Tablet) 1 Each Tablet, 1 TAB PO DAILY, (Reported) Scheduled PRN Oxycodone/Acetaminophen (Oxycodone-Acetaminophen 5-325) 1 Each Tablet, 1 TAB PO Q4H PRN for MILD/MODERATE PAIN (PS 1-7) Allergies Coded Allergies: bacitracin (Verified Allergy, Mild, RASH, 06/05/20) neomycin (Verified Allergy, Mild, RASH, 06/05/20) polymyxin B (Verified Allergy, Mild, RASH, 06/05/20) latex (Verified Allergy, Unknown, SKIN RASH, 07/25/18) Rachel Littlejohn MD Jun 07, 2020 09:21
== END 2020-06-07 12:40 | disposition home or self-care (01) | DRG 783 ==
LOC: M LDO 00:58 → M LDI 02:12 → EEVIPCON 02:12 → M OBS 06:45 → M LDI 12:25 → M OBS 13:46 → M LDI 06-06 08:53 → M OBS 06-06 08:58
PROVIDERS: ADMIT Obstetrics & Gynecology; ATTEND Obstetrics & Gynecology
PROC: 0UB70ZZ Excision of Bilateral Fallopian Tubes, Open Approach (ICD-10-PCS; 2020-06-05)
PROC: 10D00Z1 Extraction of Products of Conception, Low, Open Approach (ICD-10-PCS; principal; 2020-06-05 02:34)
DX: O32.1XX0 Maternal care for breech presentation, not applicable or unspecified (principal); O60.14X0 Preterm labor third trimester with preterm delivery third trimester, not applicable or unspecified; Z37.0 Single live birth; Z3A.36 36 weeks gestation of pregnancy; O09.523 Supervision of elderly multigravida, third trimester; O99.820 Streptococcus B carrier state complicating pregnancy; Z30.2 Encounter for sterilization; Z88.8 Allergy status to other drugs, medicaments and biological substances; Z91.040 Latex allergy status

== ENCOUNTER → 2021-02-23 | Outpatient (REF) | payer OTHER ==
[~2021-02-23] MED LIST changes: +DOK1CAP4 PO; +IBUP80TA PO; +PERCOCET PO
== END ==
LOC: M SFHCWAGY 13:37
PROVIDERS: ATTEND Advanced Practice Midwife
DX: N92.6 Irregular menstruation, unspecified (principal); Z12.4 Encounter for screening for malignant neoplasm of cervix

== ENCOUNTER → 2021-03-08 | Outpatient (CLI) | payer OTHER ==
[2021-03-08 10:52] LABS: HEMATOCRIT 37.8 % (36.0-47.0); MEAN CORPUSCULAR HEMOGLOBIN 29.1 pg (27.0-33.0); MEAN CORPUSCULAR HGB CONC 31.7 g/dl (32.0-36.5); MEAN CORPUSCULAR VOLUME 91.7 fl (80.0-96.0); PLATELET COUNT, AUTOMATED 213 10^3/uL (150-450); RED BLOOD COUNT 4.12 10^6/uL (4.00-5.40); WHITE BLOOD COUNT 5.6 10^3/uL (4.0-10.0)
[2021-03-08 11:22] LABS: HCG, SERUM QUALITATIVE NEGATIVE (NEGATIVE)
[2021-03-09 11:09] LABS: TESTOSTERONE FREE (DIRECT) 0.9 pg/mL (0.0-4.2)
== END ==
LOC: M PLALAB 07:13
PROVIDERS: ATTEND Advanced Practice Midwife
DX: N93.9 Abnormal uterine and vaginal bleeding, unspecified (principal)

== ENCOUNTER → 2021-03-08 | Outpatient (CLI) | payer OTHER ==
--- NOTE | 2021-03-08 08:44 | REP ---
INDICATION: ABNORMAL UTERINE BLEEDING COMPARISON: None. TECHNIQUE: Transabdominal pelvic ultrasound. FINDINGS: Bladder is unremarkable and measures 6.1 x 2.8 x 4.9 cm. Heterogeneous anteverted uterus measures 7.8 x 4.4 x 4.2 cm. The endometrial complex measures 4.3 mm thickness. There is suggestion for 7 mm left posterior intramural fibroid. No further uterine abnormalities are identified. Bilateral ovaries are not visualized due to excessive bowel gas within the pelvis. No pelvic fluid or obvious adnexal mass lesion. IMPRESSION: Limited transabdominal pelvic ultrasound as noted above. Possible sub cm uterine fibroid. Ovaries not visualized. <Electronically signed by Jaya Meier > 03/08/21 [id number]
== END ==
LOC: M WHC 07:26
PROVIDERS: ATTEND Advanced Practice Midwife
DX: N93.9 Abnormal uterine and vaginal bleeding, unspecified (principal); N92.6 Irregular menstruation, unspecified

== ENCOUNTER → 2021-07-16 | Outpatient (CLI) | payer OTHER | LOC: M PLAIMG 10:55 | PROVIDERS: ATTEND Nurse Practitioner Adult Health | DX: G44.52 New daily persistent headache (NDPH) (principal) ==

== ENCOUNTER → 2022-10-23 | Outpatient (CLI) | payer OTHER ==
[2022-10-23 15:37] LABS: CHOLESTEROL RISK RATIO 2.29 (<5)
== END ==
LOC: M PLALAB 08:55
PROVIDERS: ATTEND Advanced Practice Midwife
DX: Z01.419 Encounter for gynecological examination (general) (routine) without abnormal findings (principal)

== ENCOUNTER → 2022-10-23 | Outpatient (CLI) | payer OTHER ==
[2022-10-23 15:18] LABS: HEMATOCRIT 37.5 % (36.0-47.0); HEMOGLOBIN 12.1 g/dl (12.0-15.5); MEAN CORPUSCULAR HEMOGLOBIN 30.2 pg (27.0-33.0); MEAN CORPUSCULAR HGB CONC 32.3 g/dl (32.0-36.5); MEAN CORPUSCULAR VOLUME 93.5 fl (80.0-96.0); PLATELET COUNT, AUTOMATED 234 10^3/uL (150-450); RED BLOOD COUNT 4.01 10^6/uL (4.00-5.40); WHITE BLOOD COUNT 7.4 10^3/uL (4.0-10.0)
[2022-10-23 15:40] LABS: ALBUMIN 3.8 G/DL (3.2-5.2); ALKALINE PHOSPHATASE 44 U/L (46-116); ALT/SGPT < 9 U/L (7.0-40); AST/SGOT < 8 U/L (<34); BILIRUBIN,TOTAL 0.5 MG/DL (0.3-1.2); BLOOD UREA NITROGEN 15 MG/DL (9-23); CALCIUM LEVEL 8.8 MG/DL (8.5-10.1); CARBON DIOXIDE LEVEL 27 MMOL/L (20-31); CHLORIDE LEVEL 104 MMOL/L (98-107); CREATININE FOR GFR 0.69 MG/DL (0.55-1.30); GLOMERULAR FILTRATION RATE > 60.0 (>58); GLUCOSE, FASTING 82 MG/DL (60-100); SODIUM LEVEL 140 MMOL/L (136-145); THYROID STIMULATING HORMONE 3.068 uIU/ML (0.55-4.78); TOTAL PROTEIN 6.8 G/DL (5.7-8.2)
== END ==
LOC: M PLALAB 08:53
PROVIDERS: ATTEND Nurse Practitioner Adult Health
DX: Z00.00 Encounter for general adult medical examination without abnormal findings (principal); Z13.29 Encounter for screening for other suspected endocrine disorder

== ENCOUNTER → 2022-10-30 | Outpatient (CLI) | payer OTHER | LOC: M WHC 13:23 | PROVIDERS: ATTEND Advanced Practice Midwife | DX: R92.8 Other abnormal and inconclusive findings on diagnostic imaging of breast (principal) | CPT/HCPCS: 76642; 77066; G0279 ==

== ENCOUNTER → 2023-08-11 | Outpatient (REF) | payer OTHER | LOC: M SFHCPLAZ 16:56 | PROVIDERS: ATTEND Nurse Practitioner Adult Health | DX: R09.89 Other specified symptoms and signs involving the circulatory and respiratory systems (principal) ==

== ENCOUNTER → 2024-05-14 | Outpatient (CLI) | payer OTHER | LOC: M WHC 07:39 | PROVIDERS: ATTEND Advanced Practice Midwife | DX: Z12.31 Encounter for screening mammogram for malignant neoplasm of breast (principal) ==

== ENCOUNTER → 2024-11-19 | Outpatient (REF) | payer OTHER ==
[2024-11-25 14:56] LABS: HPV APTIMA Not Detected (Not Detected)
== END ==
LOC: M SFHCWAGY 12:54
PROVIDERS: ATTEND Advanced Practice Midwife
DX: Z12.4 Encounter for screening for malignant neoplasm of cervix (principal); Z77.9 Other contact with and (suspected) exposures hazardous to health; R87.610 Atypical squamous cells of undetermined significance on cytologic smear of cervix (ASC-US)
CPT/HCPCS: 87624; G0123

== ENCOUNTER → 2024-11-19 | Outpatient (CLI) | payer OTHER ==
[2024-11-19 16:44] LABS: PLATELET COUNT, AUTOMATED 239 10^3/uL (150-450)
[2024-11-19 16:45] LABS: ALT/SGPT 11 U/L (7.0-40); AST/SGOT 12 U/L (<34); CALCIUM LEVEL 8.9 MG/DL (8.5-10.1); CARBON DIOXIDE LEVEL 27 MMOL/L (20-31); CHLORIDE LEVEL 105 MMOL/L (98-107); CREATININE FOR GFR 0.64 MG/DL (0.55-1.30); GLOMERULAR FILTRATION RATE > 90.0 (>58); POTASSIUM SERUM 4.3 MMOL/L (3.5-5.1); SODIUM LEVEL 139 MMOL/L (136-145)
== END ==
LOC: M PLALAB 11:21
PROVIDERS: ATTEND Nurse Practitioner Adult Health
DX: Z00.00 Encounter for general adult medical examination without abnormal findings (principal)